=== PATIENT | female | born 1930 | race Caucasian/White ===

== ENCOUNTER 2019-08-19 02:04 | Inpatient (IN) | payer OTHER, MEDICAID ==
[~2019-08-19] VITALS: Ht 157.5 cm; Wt 81.6 kg
[~2019-08-19 02:04] MED LIST: DIGO125T79 PO; ESCI10TA PO; FLUO15CR TP; HYDR-500 PO; LOPE2CAP PO; METO-442 PO; METR500T PO; MUPI22OI TP; TRIA15CR4 TP; VALS80TA2 PO
[2019-08-19 02:05] VITALS: BP_SYST 109
--- NOTE | 2019-08-19 02:05 | NUR ---
Patient to ER bed 06 to gown for evaluation. Side rails up. Report given to RACHEL Alvarado.
--- NOTE | 2019-08-19 02:05 | NUR ---
Pt BIB EMS from [facility] r/t altered mental status. Per EMS, pt was found by staff ~ 30 minutes ENERGY TECHNICIAN sitting slumped over in a chair and drooling. Pt AAOx2, denies c/o pain or discomfort. Pt states "I fell asleep. I feel alright, just a little sleepy." Pt placed to monitor worker.
--- NOTE | 2019-08-19 02:08 | NUR ---
Dr. Dior at bedside.
--- NOTE | 2019-08-19 02:10 | NUR ---
iv # 18 gauge angiocath placed to LFA. Use of asceptic technique. Opsite placed over site. Blood return noted. Blood for lab drawn from site. Flushed with 10 cc of normal saline. No evidence of infiltration noted. Patient tolerated well.
[2019-08-19] MEDS ORDERED: NACL 0.9% 1,000 ML IV ONE (02:13)
--- NOTE | 2019-08-19 02:32 | NUR ---
Pt to CT in stable condition.
[2019-08-19 02:47] LABS: BASOPHILS % (AUTO) 0.4 % (0.0-2.0); EOSINOPHILS # (AUTO) 0.2 K/uL (0.0-0.4); EOSINOPHILS % (AUTO) 2.7 % (0.0-4.0); HEMATOCRIT 32.6 % (36-48); HEMOGLOBIN 10.7 g/dL (12.0-16.0); LYMPHOCYTES # (AUTO) 1.6 K/uL (1.0-5.5); LYMPHOCYTES % (AUTO) 24.9 % (20.5-51.5); MEAN CORPUSCULAR HEMOGLOBIN 30 pg (27-31); MEAN CORPUSCULAR HGB CONC 33 % (32-36); MEAN CORPUSCULAR VOLUME 90 fL (79.0-98.0); MONOCYTES # (AUTO) 0.6 K/uL (0.0-1.0); MONOCYTES % (AUTO) 9.5 % (1.7-9.3); NEUTROPHILS # (AUTO) 4.1 K/uL (1.8-7.7); NEUTROPHILS % (AUTO) 62.5 % (40.0-70.0); PLATELET COUNT (AUTO) 252 K/uL (130-430); RED BLOOD CELL COUNT(AUTO) 3.64 MIL/uL (4.2-6.2); RED CELL DISTRIBUTION WIDTH 17.7 % (9.0-15.0); WHITE BLOOD COUNT (AUTO) 6.6 K/uL (4.8-10.8)
[2019-08-19 02:50] LABS: ANION GAP 8 (5-15); CHLORIDE 99 mmol/L (98-107); CREATININE 1.24 mg/dL (0.55-1.30); GLUCOSE 155 mg/dL (70-99); POTASSIUM 3.4 mmol/L (3.5-5.1); SODIUM SERUM 134 mmol/L (136-145); UREA NITROGEN, BLOOD 19 mg/dL (8-21)
--- NOTE | 2019-08-19 02:51 | NUR ---
Pt returns from CT.
[2019-08-19 02:55] LABS: PROTHROMBIN TIME 10.4 SECS (9.5-12.5)
[2019-08-19 02:56] LABS: ALANINE AMINOTRANSFERASE 17 U/L (12-78); ALBUMIN 2.9 g/dL (3.4-4.8); ASPARTATE AMINOTRANSFERASE 32 U/L (10-37); TOTAL BILIRUBIN 0.3 mg/dL (0.0-1.0)
[2019-08-19 03:00] LABS: ALCOHOL, BLOOD < 3 mg/dL (<10)
--- NOTE | 2019-08-19 03:00 | NUR ---
No needs verbalized at this time. VSS.
[2019-08-19] MEDS ORDERED: PIOG30TA70 PO (03:03)
[2019-08-19] MEDS ORDERED: COR12.5 PO (03:03)
[2019-08-19] MEDS ORDERED: CAT.1 PO (03:03)
[2019-08-19] MEDS ORDERED: ALEN10TA7 PO (03:03)
[2019-08-19] MEDS ORDERED: FERR325T30 PO (03:03)
[2019-08-19] MEDS ORDERED: VITD2000 PO (03:03)
[2019-08-19] MEDS ORDERED: LACT1CAP58 PO (03:03)
[2019-08-19] MEDS ORDERED: RISP0.253 PO (03:03)
[2019-08-19] MEDS ORDERED: SAXA5TAB PO (03:03)
[2019-08-19] MEDS ORDERED: ASPI-859 PO (03:03)
[2019-08-19] MEDS ORDERED: CLOP75TA32 PO (03:03)
--- NOTE | 2019-08-19 03:15 | NUR ---
#14 Fr. In/Out urinary catheter procedure performed with return of ~5 mL yellow-estrada, foul and purulent discharge. Specimen collected and sent to lab. Addendum: 08/19/19 at 0333 by LATASHA Excoriation noted to left labia majora, foul vaginal discharge, 1 cm diameter sore to left hip.
[2019-08-19 03:36] LABS: BILIRUBIN,URINE NEGATIVE (NEGATIVE); CLARITY/URINE TURBID (CLEAR); COLOR,URINE YELLOW (YELLOW); GLUCOSE,URINE NEGATIVE (NEGATIVE); KETONES,URINE NEGATIVE (NEGATIVE); LEUKOCYTE ESTERASE ,URINE 3+ (NEGATIVE); NITRITE, URINE NEGATIVE (NEGATIVE); PH,URINE 8.5 (5.0-8.0); PROTEIN URINE 3+ (NEGATIVE); UROBILINOGEN,URINE 0.2 (0.2-1.0)
[2019-08-19 03:39] LABS: BLOOD, URINE TRACE (NEGATIVE)
[2019-08-19 03:40] LABS: BACTERIA,URINE MANY /HPF (None Seen); WBC,URINE >100 /HPF (0-3)
[2019-08-19] MEDS ORDERED: cefTRIAXone 1 GM IVPB PREMIX 50 ML IV ONE (03:45)
[2019-08-19] MEDS ORDERED: PREDEYE1% LEFT EYE (04:00)
[2019-08-19] MEDS ORDERED: CALC-823 PO (04:00)
[2019-08-19] MEDS ORDERED: SITA100T11 PO (04:00)
[2019-08-19] MEDS ORDERED: FLO44 INH (04:00)
[2019-08-19] MEDS ORDERED: GABA-533 PO (04:00)
[2019-08-19] MEDS ORDERED: TEMA30CA5 PO (04:00)
[2019-08-19] MEDS ORDERED: KETO5DRO85 LEFT EYE (04:00)
[2019-08-19] MEDS ORDERED: LISI40TA4 PO (04:00)
[2019-08-19] MEDS ORDERED: MIRT15TA7 PO (04:00)
[2019-08-19] MEDS ORDERED: SPIRIVA INH (04:00)
[2019-08-19] MEDS ORDERED: NITSL SL (04:00)
[2019-08-19] MEDS ORDERED: PROP10DR2 EACH EYE (04:00)
--- NOTE | 2019-08-19 04:01 | NUR ---
Medication reconciliation completed with information provided by [facility]. Any prior medication reconciliation on file was reviewed and corrected.
--- NOTE | 2019-08-19 04:32 | NUR ---
Specimen for MRSA collected and sent to lab.
--- NOTE | 2019-08-19 05:00 | NUR ---
Denies c/o pain or discomfort, no needs verbalized.
--- NOTE | 2019-08-19 05:22 | NUR ---
Patient will be admitted to care of Dr. Bernal. Admitted to Tele unit. Will go to room 114A. Belongings list completed. Complete and up to date summary report printed. SBAR report to be given at bedside with opportunity for questions.
--- NOTE | 2019-08-19 05:41 | NUR ---
ADMISSION NOTE Received patient from ER via gurney. Patient admitted with diagnosis of UTI and Syncope under medical supervision of Dr. Bernal. Patient is awake, alert, oriented X1. Personal belongings checked and Belongings List documented. Call light within reach. Safety precaution in place
[2019-08-19 06:15] VITALS: BP_SYST 145
--- NOTE | 2019-08-19 07:16 | NUR ---
CLOSING NOTES PATIENT AOX2. NO SIGNS OF RESPIRATORY DISTRESS NOTED. DENIES PAIN AND DISCOMFORT AT THIS TIME. BREATHING EVEN AND UNLABORED. ON ROOM AIR TOLERATING WELL. IV SITE, PATENCY NOTED. BED LOCKED AND IN LOWEST POSITION. BED ALARM ON. NEEDS MET UPON ADMISSION. GABBY CARE DONE WITH HELP OF MATERIALS PLANNER, PATIENT TOLERATED WELL. SAFETY PRECAUTION IN PLACE. ENDORSE TO RACHEL CHISHOLM FOR CONTINUITY OF CARE.
--- NOTE | 2019-08-19 07:30 | NUR ---
OPENING NOTES: RECEIVED PATIENT FROM GOVERNMENT SALES MANAGER NURSE. PATIENT IS AWAKE AND ALERT x2 LAYING DOWN IN BED. PATIENT IS TOLERATING OXYGEN ON ROOM AIR WITH NO SIGNS OF DISTRESS OR SHORTNESS OF BREATH NOTED. IV SITES ARE PATENT WITH NO SIGNS OF INFILTRATION NOTED. PATIENT DENIES ANY PAIN AT THE MOMENT. PATIENT IN STABLE CONDITION. SAFETY, FALL AND ASPIRATION PRECAUTIONS ARE IN PLACE. BED LOCKED IN LOWEST POSITION WITH CALL LIGHT IN REACH. WILL CONTINUE TO MONITOR PATIENT FOR ANY CHANGES.
[2019-08-19 08:10] VITALS: BP_SYST 137
--- NOTE | 2019-08-19 09:31 | NUR ---
Nutrition Update Karan Scale 15 noted. Pt admitted for syncope, UTI. Diet: NPO BMI: 32.9 kg/m2 RD to follow per nutrition care standards.
--- NOTE | 2019-08-19 10:35 | NUR ---
RN ROUNDS: PATIENT IS AWAKE AND ALERT x2 LAYING DOWN IN BED. PATIENT IS CONFUSED AND YELLING THAT SHE IS HUNGRY. PATIENT EDUCATED ON BEING NPO. PATIENT UNABLE TO VERBALIZE UNDERSTANDING DUE TO BEING CONFUSED. PATIENT TOLERATING OXYGEN ON ROOM AIR WITH NO SIGNS OF DISTRESS OR SHORTNESS OF BREATH NOTED. PATIENT IN STABLE CONDITION. WILL CONTINUE TO MONITOR PATIENT FOR ANY CHANGES.
--- NOTE | 2019-08-19 11:16 | NUR ---
SS NOTES: TECHNOLOGY INTEGRATION SPECIALIST attempted to meet with patient who was asleep. TECHNOLOGY INTEGRATION SPECIALIST attempted to phone daughter, busy signal.
[2019-08-19 12:00] VITALS: BP_SYST 128
[2019-08-19] MEDS ORDERED: NITROGLYCERIN 0.4 MG TAB.SUBL SL PRN (12:00)
[2019-08-19] MEDS ORDERED: risperiDONE 0.25 MG TABLET (RisperDAL) PO ONE (12:15)
[2019-08-19] MEDS ORDERED: PIOGLITAZONE HCL 15 MG TABLET PO ONE (12:30)
[2019-08-19] MEDS ORDERED: GABAPENTIN 400 MG CAPSULE PO ONE (12:30)
[2019-08-19] MEDS ORDERED: LISINOPRIL 20 MG TABLET PO ONE ×2 (12:30→12:45)
[2019-08-19] MEDS ORDERED: FERROUS SULFATE 325 MG TABLET.DR PO ONE (12:30)
[2019-08-19] MEDS ORDERED: CARVEDILOL 12.5 MG TABLET (COREG) PO ONE (12:30)
[2019-08-19] MEDS ORDERED: ASPIRIN 81 MG TABLET(ECOTRIN) PO ONE (12:30)
[2019-08-19] MEDS ORDERED: CLOPIDOGREL BISULFATE 75 MG TABLET PO ONE (12:30)
[2019-08-19] MEDS ORDERED: CHOLECALCIFEROL (VITAMIN D3) 2,000 UNIT TABLET PO ONE (12:30)
[2019-08-19] MEDS ORDERED: PIOGLITAZONE HCL 30 MG TABLET PO ONE (12:30)
--- NOTE | 2019-08-19 12:30 | NUR ---
RN ROUNDS: PATIENT IS ASLEEP LAYING DOWN IN BED. PATIENT IS TOLERATING OXYGEN ON ROOM AIR WITH NO SIGNS OF DISTRESS OR SHORTNESS OF BREATH NOTED. PATIENT IN STABLE CONDITION. WILL CONTINUE TO MONITOR PATIENT FOR ANY CHANGES.
[2019-08-19] MEDS: D5NS 1,000 ML IV SCH (13:37)
--- NOTE | 2019-08-19 16:07 | NUR ---
RN ROUNDS: PATIENT IS AWAKE AND ALERT x1 LAYING DOWN IN BED. PATIENT IS CONFUSED AND THINKS ITS 10:00PM. PATIENT REORIENTED TO TIME AND PLACE. PATIENT STATES "SHE WANTS TO GO HOME". INFORMED PATIENT THAT ONCE SHE IS CLEARED BY THE PHYSICIAN WE CAN SEND HER HOME. PATIENT AGREED. PATIENT IN STABLE CONDITION. WILL CONTINUE TO MONITOR PATIENT FOR ANY CHANGES.
[2019-08-19 17:21] VITALS: BP_SYST 136
--- NOTE | 2019-08-19 18:30 | NUR ---
CLOSING NOTES: PATIENT IS ASLEEP LAYING DOWN IN BED. PATIENT IS TOLERATING OXYGEN ON ROOM AIR WITH NO SIGNS OF DISTRESS OR SHORTNESS OF BREATH NOTED. IV SITE IS PATENT WITH NO SIGNS OF INFILTRATION NOTED AND RUNNING IV FLUIDS ORDERED. PATIENT IN STABLE CONDITION. SAFETY, FALL AND ASPIRATION PRECAUTIONS REMAINED IN PLACE THROUGHOUT THE SHIFT. BED LOCKED IN LOWEST POSITION WITH CALL LIGHT IN REACH. WILL ENDORSE PATIENT CARE TO ONCOMING ELECTRON BEAM MACHINE WELDER SETTER NURSE.
[2019-08-19 20:00] VITALS: BP_SYST 123
[2019-08-19] MEDS: cefTRIAXone 1 GM IVPB PREMIX 50 ML IV SCH (20:39)
[2019-08-19] MEDS: LISINOPRIL 20 MG TABLET PO SCH (20:40)
[2019-08-19] MEDS: CARVEDILOL 12.5 MG TABLET (COREG) PO SCH (20:40)
[2019-08-19] MEDS: MIRTAZAPINE 15 MG TABLET PO SCH (20:41)
[2019-08-19] MEDS: GABAPENTIN 400 MG CAPSULE PO SCH (20:41)
--- NOTE | 2019-08-19 23:00 | NUR ---
i have assumed the care of the pt.for the remainder of the shift.i have received the pt's report/data from casimiro. Addendum: 08/20/19 at 0313 by Blair Landers RN to review the dr's orders.
[2019-08-19] MEDS: BUDESONIDE 0.5 MG/2 ML AMPUL.NEB INH SCH (23:37)
[2019-08-19] MEDS ORDERED: HALOPERIDOL LACTATE 5 MG/ML VIAL IVP ONE (23:45)
--- NOTE | 2019-08-20 | NUR ---
pt.assessed.v/s assessed;note b/p values.no c/o pain,nausea.pt.assessed for cleanliness.pt.repositioned.iv access intact;patent iv fluids infusing. diet status;advanced:clear liquids.pt.requested water.i have assisted the pt.w the water cup.general status stable.respiratory status stable;unlabored.call light/telephone placed w/in reach of the pt.
[2019-08-20 00:47] VITALS: BP_SYST 149
--- NOTE | 2019-08-20 02:00 | NUR ---
pt.assessed.pt.presents quiescent affect;calm.pt.had requested the tv turned off;i have acquiests to the pt's requests.i inquired if the pt.requested water,pt.stated,yes.i have provided water/juice.no c/o pain,nausea.pt.assessed for cleanliness.pt.repositioned.iv access intact; patent iv fluids infusing.call light/telephone placed w/in reach of the pt.
--- NOTE | 2019-08-20 04:00 | NUR ---
pt.assessed.pt.presents quiescent affect;calm,somnolent.pt.assessed for cleanliness.pt.repositioned.iv access intact;patent. iv fluids infusing.general status stable.respiratory status stable;unlabored.call light/telephone placed w/in reach of the pt.
[2019-08-20] MEDS: D5NS 1,000 ML IV SCH ×2 (05:59→23:43)
--- NOTE | 2019-08-20 06:16 | NUR ---
pt.assessed.pt.assessed for cleanliness.pt.cleaned.pt.repositioned.i inquired if the pt.requested fluids.pt.stated:yes.i have assisted the pt.w/juice. i have changed the iv fluids bag.no c/o pain,nausea.general status stable.respiratory status stable;unlabored.call light/telephone placed w/in the reach of the pt.
--- NOTE | 2019-08-20 07:20 | NUR ---
received patient asleep. alert awake x 2. vitals signs stable. afebrile. lungs bilaterally clear but diminished at the bases. abdomen soft and non distended. has iv access on the left hand #22. saline lock. rt hand #18. with iv fluids of D5NS at 60cc/hr infusing on well. bed low position,alarmed and locked. will continue to monitor patients status. call lights within reach.
[2019-08-20 07:35] VITALS: BP_SYST 167
--- NOTE | 2019-08-20 08:00 | NUR ---
patient stable. no complained made so far.
[2019-08-20 08:12] VITALS: BP_SYST 156
[2019-08-20] MEDS: BUDESONIDE 0.5 MG/2 ML AMPUL.NEB INH SCH ×2 (08:13→20:17)
[2019-08-20] MEDS ORDERED: FLUTICASONE 44 mcg/ACTUATION MDI AER.W.ADAP INH SCH (09:00)
[2019-08-20] MEDS: PIOGLITAZONE HCL 15 MG TABLET PO SCH (09:43)
[2019-08-20] MEDS: CLOPIDOGREL BISULFATE 75 MG TABLET PO SCH (09:44)
[2019-08-20] MEDS: GABAPENTIN 400 MG CAPSULE PO SCH ×2 (09:44→20:39)
[2019-08-20] MEDS: CHOLECALCIFEROL (VITAMIN D3) 2,000 UNIT TABLET PO SCH (09:44)
[2019-08-20] MEDS: CARVEDILOL 12.5 MG TABLET (COREG) PO SCH ×2 (09:44→20:39)
[2019-08-20] MEDS: ASPIRIN 81 MG TABLET(ECOTRIN) PO SCH (09:45)
[2019-08-20] MEDS: FERROUS SULFATE 325 MG TABLET.DR PO SCH (09:45)
[2019-08-20] MEDS: LISINOPRIL 20 MG TABLET PO SCH ×2 (09:46→20:39)
--- NOTE | 2019-08-20 10:00 | NUR ---
due medication given, but had vomitted. made aware.
[2019-08-20] MEDS ORDERED: DEXTROSE 50% JECT 50 ML DISP.SYRIN IVP PRN (11:15)
--- NOTE | 2019-08-20 12:00 | NUR ---
able to eat and assisted by Carmen Alston
[2019-08-20 12:33] VITALS: BP_SYST 123
[2019-08-20 13:04] LABS: THYROID STIMULATING HORMONE 1.32 uIu/mL (0.34-4.82)
[2019-08-20] MEDS ORDERED: ONDANSETRON HCL 4 MG/2 ML VIAL IM PRN (13:15)
[2019-08-20] MEDS: risperiDONE 0.25 MG TABLET (RisperDAL) PO SCH (13:42)
--- NOTE | 2019-08-20 14:00 | NUR ---
latest bs 218 mg/dl. coverage given
[2019-08-20] MEDS: INSULIN REGULAR, HUMAN 100 UNITS/ML, 10 ML VIAL (humuLIN R) SUBCUT PRN (14:07)
--- NOTE | 2019-08-20 15:06 | NUR ---
turn to sides. made comfortable. hob elevated.
[2019-08-20] MEDS: ONDANSETRON HCL 4 MG/2 ML VIAL IVP PRN (15:42)
[2019-08-20] MEDS: cloNIDine HCL 0.1 MG TABLET PO PRN (15:42)
--- NOTE | 2019-08-20 15:57 | NUR ---
ATTENDING MD DR HORN WAS CALLED, RE: PT HAS FEVER OR ELEVATED TEMP. SPOKE TO PAULA
[2019-08-20 16:00] VITALS: BP_SYST 171
--- NOTE | 2019-08-20 17:35 | NUR ---
dr cristina called again x2 . awaiting to call back.
--- NOTE | 2019-08-20 18:07 | NUR ---
closing: patient feels much better after zofran 4 mg iv. and catapres 0.1 mg po. no nausea nor vomitting noted. still same iv fluids D5NS at 60cc/hr infusing on well. awaiting for Dr Beranl to call back. for temperature of 101.2. now is 99.3 latest. same iv access x 2 patent/dry. will continue to monitor patients status. needs pt order and scds. please follow up. bed low position, alarmed and locked. endorsed to incoming nurse.
--- NOTE | 2019-08-20 18:13 | NUR ---
latest bs 120 mg/dl. no coverage given. still eating clear liquid little by little.
--- NOTE | 2019-08-20 19:56 | NUR ---
please follow up for dr cristina for orders. endorsed to incoming nurse Temitope RAMOS
[2019-08-20 20:10] VITALS: BP_SYST 124
--- NOTE | 2019-08-20 20:10 | NUR ---
Opening notes Pt awake, alert, VSS, afebrile. No s/s distress noted. IVF infusing at ordered rate R hand, 18G clear and patent. L. hand saline lock. Call light within reach. To monitor.
[2019-08-20] MEDS: MIRTAZAPINE 15 MG TABLET PO SCH (20:39)
--- NOTE | 2019-08-20 23:47 | NUR ---
Accucheck Pt asleep easily arousable. Blood sugar checked 148. No indication for insulin per protocol. To monitor.
--- NOTE | 2019-08-21 01:10 | NUR ---
Rounds/Pericare Pt asleep, easily arousable. VSS. Pt incontinent of urine. Pericare provided w/ COMPOUND COATING MACHINE OFFBEARER assist. Pt repositioned. Call light within reach. To monitor.
[2019-08-21 01:47] VITALS: BP_SYST 122
--- NOTE | 2019-08-21 02:15 | NUR ---
Rounds Pt asleep, respirations even and unlabored. IVF infusing at ordered rate R. FA clear and patent. CAll light within reach. Bed low, locked, alarm on. To monitor.
--- NOTE | 2019-08-21 04:40 | NUR ---
Rounds/IV antibiotic Pt asleep, no s/s distress noted. Afebrile. IVF/antibiotic infusing at ordered rate R. hand 18G clear and patent. Pt repositioned. Safety maintained. Bed low, locked, siderails up, alarm on. Call light within reach. To monitor.
[2019-08-21] MEDS: cefTRIAXone 1 GM IVPB PREMIX 50 ML IV SCH (04:41)
--- NOTE | 2019-08-21 06:05 | NUR ---
Closing notes/Accucheck Pt asleep, no s/s distress noted. Blood sugar checked 123. IVF infusing at ordered rate R. hand 18G clear and patent. Call light within reach. Bed low, locked, siderails up x3, alarm on. To endorse to AM nurse. Addendum: 08/21/19 at 0649 by Temitope Melgoza RN Pt VSS, afebrile 97.9. No nausea or vomiting noted.
--- NOTE | 2019-08-21 07:20 | NUR ---
received patient alert awake x 2. lungs bilaterally clear. abdomen soft and non distended. vitals signs stable. afebrile. has iv access on both arms with drNS at 60cc/hr infusing on well. tolearting clear liquid much better. bed low position, alarmed and locked. call lights within reach. for pt evaluation today. no complained so far at this time. hob elevated.
[2019-08-21] MEDS: BUDESONIDE 0.5 MG/2 ML AMPUL.NEB INH SCH (07:31)
[2019-08-21 07:39] VITALS: BP_SYST 145
[2019-08-21] MEDS: PIOGLITAZONE HCL 15 MG TABLET PO SCH (08:12)
[2019-08-21] MEDS: ASPIRIN 81 MG TABLET(ECOTRIN) PO SCH (08:13)
[2019-08-21] MEDS: FERROUS SULFATE 325 MG TABLET.DR PO SCH (08:13)
[2019-08-21] MEDS: CHOLECALCIFEROL (VITAMIN D3) 2,000 UNIT TABLET PO SCH (08:14)
[2019-08-21] MEDS: CLOPIDOGREL BISULFATE 75 MG TABLET PO SCH (08:14)
[2019-08-21] MEDS: GABAPENTIN 400 MG CAPSULE PO SCH ×2 (08:14→21:04)
[2019-08-21] MEDS: CARVEDILOL 12.5 MG TABLET (COREG) PO SCH ×2 (08:14→21:05)
[2019-08-21] MEDS: LISINOPRIL 20 MG TABLET PO SCH ×2 (08:15→21:09)
--- NOTE | 2019-08-21 08:20 | NUR ---
due meds given. while eating breakfast. taking pills slowly.
[2019-08-21] MEDS ORDERED: ONDANSETRON HCL 4 MG/2 ML VIAL IVP PRN (08:45)
[2019-08-21] MEDS ORDERED: ACETAMINOPHEN 325 MG TABLET PO PRN (08:45)
[2019-08-21] MEDS ORDERED: METOCLOPRAMIDE HCL 10 MG/2 ML VIAL IVP PRN (08:45)
--- NOTE | 2019-08-21 09:24 | NUR ---
dr cristina informed regarding the vomittting and temperature of 101.2 yesterday and today. but said i will. made orders for ct chest without contrast. and others.
[2019-08-21] MEDS: risperiDONE 0.25 MG TABLET (RisperDAL) PO SCH (12:00)
--- NOTE | 2019-08-21 12:00 | NUR ---
not able to eat much due to nausea. not tolerating the clear liquid
[2019-08-21] MEDS: ONDANSETRON HCL 4 MG/2 ML VIAL IVP PRN (12:39)
[2019-08-21 12:41] VITALS: BP_SYST 134
--- NOTE | 2019-08-21 13:27 | NUR ---
spoke to dr cristina made orders informed regarding the vomitting about 400cc colored dark brown liquid.
[2019-08-21] MEDS ORDERED: IOHEXOL 100 ML IV ONE (14:09)
[2019-08-21] MEDS ORDERED: DIATR MEGLU/DIATRIZ SOD 30 ML SOLUTION PO ONE (14:16)
--- NOTE | 2019-08-21 15:00 | NUR ---
PATIENT CANNOT TOLERATE PO CONTRAST, SO INFORMED RADIOLOGY DEPT TO DO IV CONTRAST.
[2019-08-21] MEDS: D5NS 1,000 ML IV SCH (15:30)
--- NOTE | 2019-08-21 16:44 | NUR ---
C T SCAN OF ABDOMEN AND PELVES DONE.
[2019-08-21 17:10] VITALS: BP_SYST 172
--- NOTE | 2019-08-21 18:00 | NUR ---
bs check 128 mg.dl. no coverage given. still on npo status. went back to sleep after the procedure.
--- NOTE | 2019-08-21 19:40 | NUR ---
endorsed to incoming nurse. Temitope RAMOS
--- NOTE | 2019-08-21 19:45 | NUR ---
please follow up with dr cristina bladder scan is 200 cc of urine. had voided about x 2 in blue chucks small amount of urine. but no distention noted. no pain. noted.
[2019-08-21 20:15] VITALS: BP_SYST 161
--- NOTE | 2019-08-21 20:15 | NUR ---
Opening notes Pt AAOx2. Pt had vomitted on her gown. BP slightly elevated 161/65. Hygiene care provided with PILE HEADER assist. Pt incontinent of urine. IVF infusing at ordered rate L. FA 22G clear and patent. Call light within reach. Bed low, locked, alarm on. Will re check BP. To monitor.
[2019-08-21] MEDS: MIRTAZAPINE 15 MG TABLET PO SCH (21:04)
--- NOTE | 2019-08-21 23:30 | NUR ---
Episode of V-tach Pt alert awake, had episode of V-tach for 7 seconds. Pt had just vomitted 40ml green bile emesis. No s/s distress. Will medicate as needed. Maintain NPO. Call light within reach.
[2019-08-22] MEDS: ONDANSETRON HCL 4 MG/2 ML VIAL IVP PRN (00:12)
--- NOTE | 2019-08-22 00:12 | NUR ---
Accucheck/Zofran Pt awake, medicated with Zofran 4mg IVP as needed for vomitting 40ml greenish emesis. Blood sugar checked 174. IVF infusing at ordered rate L.FA no s/s infiltration noted. Awaiting GI consult.
[2019-08-22 00:26] VITALS: BP_SYST 156
--- NOTE | 2019-08-22 01:21 | NUR ---
Consultation Paged Reason for Consultation: abdominal pain/ nausea/vomiting Was consult called: Y Person who was notified: Alma Consulting Physician: Сергей Rodriguez Environmental Sampler Ordering Physician: Dr. Bernal
--- NOTE | 2019-08-22 02:00 | NUR ---
Emesis Pt vomitted dark brown emesis in basin. Medicated with Zofran at 0030. HOB maintained elevated. To monitor.
[2019-08-22] MEDS: cefTRIAXone 1 GM IVPB PREMIX 50 ML IV SCH (04:58)
--- NOTE | 2019-08-22 05:00 | NUR ---
Rounds/Pericare Pt awake, no distress noted. Pt incontinent of urine. Pericare provided. IVF infusing at ordered rate L. FA clear and patent. Pt repositioned. Call light within reach. To monitor.
--- NOTE | 2019-08-22 06:05 | NUR ---
Closing notes Pt awake, alert, no s/s distress noted. HOB maintained elevated. IVF infusing at ordered rate L. FA 22G no s/s infiltration. Call light within reach. Pt repositioned. Bed low, locked, siderails up, alarm on. To endorse to AM nurse.
[2019-08-22] MEDS: INSULIN REGULAR, HUMAN 100 UNITS/ML, 10 ML VIAL (humuLIN R) SUBCUT PRN (06:13)
[2019-08-22 07:02] LABS: ALANINE AMINOTRANSFERASE 20 U/L (12-78); ALBUMIN 2.4 g/dL (3.4-4.8); ANION GAP 7 (5-15); ASPARTATE AMINOTRANSFERASE 42 U/L (10-37); CALCIUM 7.3 mg/dL (8.4-11.0); CHLORIDE 99 mmol/L (98-107); CREATININE 0.87 mg/dL (0.55-1.30); GLUCOSE 161 mg/dL (70-99); SODIUM SERUM 135 mmol/L (136-145); TOTAL BILIRUBIN 0.3 mg/dL (0.0-1.0); UREA NITROGEN, BLOOD 18 mg/dL (8-21)
[2019-08-22 07:14] LABS: BASOPHILS % (AUTO) 0.1 % (0.0-2.0); HEMATOCRIT 31.4 % (36-48); HEMOGLOBIN 10.3 g/dL (12.0-16.0); LYMPHOCYTES # (AUTO) 1.5 K/uL (1.0-5.5); LYMPHOCYTES % (AUTO) 13.3 % (20.5-51.5); MEAN CORPUSCULAR HEMOGLOBIN 29 pg (27-31); MEAN CORPUSCULAR HGB CONC 33 % (32-36); MEAN CORPUSCULAR VOLUME 89 fL (79.0-98.0); MONOCYTES # (AUTO) 0.9 K/uL (0.0-1.0); MONOCYTES % (AUTO) 8.1 % (1.7-9.3); NEUTROPHILS # (AUTO) 8.7 K/uL (1.8-7.7); NEUTROPHILS % (AUTO) 78.5 % (40.0-70.0); PLATELET COUNT (AUTO) 248 K/uL (130-430); RED BLOOD CELL COUNT(AUTO) 3.54 MIL/uL (4.2-6.2); RED CELL DISTRIBUTION WIDTH 17.6 % (9.0-15.0); WHITE BLOOD COUNT (AUTO) 11.2 K/uL (4.8-10.8)
--- NOTE | 2019-08-22 07:25 | NUR ---
opening note Received bedside SBAR from night RN, patient in bed eyes open, respirations even, non labored, bed in low and locked position, call light within reach, bed alarm on
[2019-08-22] MEDS: BUDESONIDE 0.5 MG/2 ML AMPUL.NEB INH SCH (08:09)
[2019-08-22 08:27] LABS: POTASSIUM 2.9 mmol/L (3.5-5.1)
[2019-08-22] MEDS: GABAPENTIN 400 MG CAPSULE PO SCH ×2 (09:00→21:00)
[2019-08-22] MEDS: CHOLECALCIFEROL (VITAMIN D3) 2,000 UNIT TABLET PO SCH (09:00)
[2019-08-22] MEDS: CLOPIDOGREL BISULFATE 75 MG TABLET PO SCH (09:00)
[2019-08-22] MEDS: LISINOPRIL 20 MG TABLET PO SCH ×2 (09:00→21:00)
[2019-08-22] MEDS: CARVEDILOL 12.5 MG TABLET (COREG) PO SCH ×2 (09:00→21:00)
[2019-08-22] MEDS: ASPIRIN 81 MG TABLET(ECOTRIN) PO SCH (09:00)
[2019-08-22] MEDS: FERROUS SULFATE 325 MG TABLET.DR PO SCH (09:00)
[2019-08-22] MEDS: PIOGLITAZONE HCL 15 MG TABLET PO SCH (09:00)
--- NOTE | 2019-08-22 09:25 | NUR ---
medications patient is NPO, informed Dr. Bernal of patients blood pressure 156/66, no further orders, do not administer morning medications
[2019-08-22 10:43] VITALS: BP_SYST 156
[2019-08-22 12:00] VITALS: BP_SYST 141
[2019-08-22] MEDS: risperiDONE 0.25 MG TABLET (RisperDAL) PO SCH (12:00)
--- NOTE | 2019-08-22 12:00 | NUR ---
nurse notes obtained patients vital signs and blood sugar, patient in bed, respirations even, non labored, bed in low and locked position, call light within reach, bed alarm on
[2019-08-22] MEDS: D5NS 1,000 ML IV SCH (13:17)
[2019-08-22] MEDS ORDERED: POTASSIUM CHLORIDE 40 MEQ, LIDOCAINE JECT 2% PF 100 MG 50 MG in NS 250 ML IV ONE (15:00)
--- NOTE | 2019-08-22 15:10 | NUR ---
nurse note 1510 sergio Young educated patient regarding s/s of medication
[2019-08-22 16:50] VITALS: BP_SYST 177
--- NOTE | 2019-08-22 17:34 | NUR ---
ATTENDING MD DR HORN WAS CALLED, RE: HIGH BP. SPOKE TO NEREIDA.
[2019-08-22] MEDS ORDERED: ENALAPRILAT DIHYDRATE 1.25 MG/ML VIAL IVP PRN (17:45)
--- NOTE | 2019-08-22 18:01 | NUR ---
IV RE-INSERTION: iv site leaking. Restarted on right forearm 22g . Successful after 2 attempts. Resumed current IVF and potassium infusion. Will observe for any signs of infiltration.
--- NOTE | 2019-08-22 19:25 | NUR ---
CLOSING NOTE BEDSIDE SBAR GIVEN TO NIGHT RN, PATIENT IN BED, EYES CLOSED, RESPIRATIONS EVEN, NON LABORED, BED IN LOW AND LOCKED POSITION, CALL LIGHT WITHIN REACH, BED ALARM ON, CARE ENDORSED TO NIGHT RN
[2019-08-22 19:45] VITALS: BP_SYST 152
--- NOTE | 2019-08-22 19:45 | NUR ---
Opening notes Pt awake alert, VSS, BP 152/62, afebrile. IVF and K-rider infusing at ordered rate R. FA 22G no s/s infiltration. Pt repositioned. Call light within reach. BEd low, locked, siderails up, alarm on. To monitor.
[2019-08-22] MEDS: MIRTAZAPINE 15 MG TABLET PO SCH (21:00)
--- NOTE | 2019-08-22 23:00 | NUR ---
Rounds Pt incontinent of urine. Pericare/skin care provided and linens changed. Pt repositioned. VSS. Call light withn reach. HOB slightly elevated.
[2019-08-23 00:14] VITALS: BP_SYST 138
[2019-08-23] MEDS: BUDESONIDE 0.5 MG/2 ML AMPUL.NEB INH SCH ×3 (00:24→20:07)
[2019-08-23] MEDS: D5NS 1,000 ML IV SCH ×2 (00:45→18:48)
--- NOTE | 2019-08-23 01:50 | NUR ---
Rounds Pt asleep, no s/s distress noted. IVF infusing at ordered rate R. FA clear and patent. Call light iwthin reach. To monitor.
[2019-08-23] MEDS: cefTRIAXone 1 GM IVPB PREMIX 50 ML IV SCH (03:39)
--- NOTE | 2019-08-23 04:45 | NUR ---
Rounds Pt awake incontinent of urine. pericare provided. repositioned. No c/o nausea or vomitting at this time. to monitor.
--- NOTE | 2019-08-23 05:26 | NUR ---
Closing notes Pt asleep, easily arousable. No s/s distress noted. BS cheked 150, no indication for insulin per protocol. IVF infusing at ordered rate R. FA 22G no s/s infiltration. Call light within reach. Bed low, locked siderails up, alarm on. To endorse to AM nurse.
--- NOTE | 2019-08-23 11:14 | NUR ---
Patient A&O x2-3. No s/s of distress and patient denies pain. Patient went down for GI exam. AM medications will be given when patient returns.
[2019-08-23] MEDS: FERROUS SULFATE 325 MG TABLET.DR PO SCH (12:14)
[2019-08-23] MEDS: CHOLECALCIFEROL (VITAMIN D3) 2,000 UNIT TABLET PO SCH (12:15)
[2019-08-23] MEDS: PIOGLITAZONE HCL 15 MG TABLET PO SCH (12:17)
[2019-08-23] MEDS: ASPIRIN 81 MG TABLET(ECOTRIN) PO SCH (12:18)
[2019-08-23] MEDS: LISINOPRIL 20 MG TABLET PO SCH ×2 (12:20→21:00)
[2019-08-23] MEDS: GABAPENTIN 400 MG CAPSULE PO SCH ×2 (12:20→21:00)
[2019-08-23] MEDS: CLOPIDOGREL BISULFATE 75 MG TABLET PO SCH (12:20)
[2019-08-23] MEDS: CARVEDILOL 12.5 MG TABLET (COREG) PO SCH ×2 (12:22→21:00)
[2019-08-23 12:30] VITALS: BP_SYST 162
[2019-08-23] MEDS: risperiDONE 0.25 MG TABLET (RisperDAL) PO SCH (13:37)
[2019-08-23 16:36] VITALS: BP_SYST 128
--- NOTE | 2019-08-23 18:51 | NUR ---
Patient A&O x2-3. No s/s of distress and patient denies pain. Patient stable. Laying in bed resting. Reporting to night nurse.
[2019-08-23 20:00] VITALS: BP_SYST 149
[2019-08-23] MEDS: MIRTAZAPINE 15 MG TABLET PO SCH (21:00)
--- NOTE | 2019-08-23 21:10 | NUR ---
ROUNDS: Patient is asleep at this time. Breathing is even and unlabored. Bed alarm on, bed locked in lowest position, call light with patient. Will continue to monitor.
--- NOTE | 2019-08-23 23:15 | NUR ---
ROUNDS/EDUCATION: Patient is awake at this time. Breathing is even and unlabored. She was asking for water, but was educated that she is currently NPO. She seemed a little frustrated, but verbalized understanding. No c/o of pain or nausea. Bed alarm on, bed locked in lowest position, call light with patient. Will continue to monitor.
--- NOTE | 2019-08-23 23:58 | NUR ---
OPENING NOTE: Patient is asleep at this time. No s/s of acute distress noted. Breathing is even and unlabored. IVF are infusing well. IV site is without s/s of infiltration or infection. Patient has a basin at bedside for emesis if needed. Bed alarm is on. Bed locked in lowest position, call light with patient. Will continue to monitor. Addendum: 08/24/19 at 0316 by Jordyn Tate RN Note was at change of shift. 1914.
[2019-08-24] MEDS: INSULIN REGULAR, HUMAN 100 UNITS/ML, 10 ML VIAL (humuLIN R) SUBCUT PRN ×3 (00:13→12:15)
[2019-08-24 00:30] VITALS: BP_SYST 145
--- NOTE | 2019-08-24 01:15 | NUR ---
ROUNDS: Patient is asleep at this time. Breathing is even and unlabored. Bed alarm on, bed locked in lowest position, call light with patient.
--- NOTE | 2019-08-24 03:17 | NUR ---
ROUNDS: Patient is asleep at this time. Breathing is even and unlabored. Bed alarm on, bed locked in lowest position, call light with patient.
[2019-08-24] MEDS: cefTRIAXone 1 GM IVPB PREMIX 50 ML IV SCH (03:59)
--- NOTE | 2019-08-24 05:20 | NUR ---
ROUNDS: Patient is awake and watching tv at this time. Breathing is even and unlabored. Nothing needed at this time. Bed alarm is on, bed locked in lowest position, call light with patient. Will continue to monitor.
--- NOTE | 2019-08-24 06:45 | NUR ---
CLOSING NOTE: Patient is awake at this time, AOx1/2. It appeared as she was having trouble breathing, assessment done, lung sounds clear, 02 saturation 94% on RA with hx of COPD, HOB raised, and patient verbalized feeling fine at this time. Will continue to monitor and evaluate. IVF are running well. IV site is patent without s/s of infiltration or infection. All fall/safety precautions maintained throughout the shift. All needs met throughout the shift. Will continue to monitor until care is endorsed to dayshift nurse.
--- NOTE | 2019-08-24 07:25 | NUR ---
INITIAL NOTE PT AWAKE, TRYING TO REMOVE LEADS. REORIENTED PT AND EDUCATED PT ON PURPOSE OF TELEMETRY BOX. PT VERBALIZED UNDERSTANDING. IVF INFUSING WELL. CALL LIGHT WITHIN REACH, BED IN LOW AND LOCKED POSITION WITH BED ALARM ON. PT REMAINS NPO.
[2019-08-24] MEDS: BUDESONIDE 0.5 MG/2 ML AMPUL.NEB INH SCH ×2 (07:30→19:49)
[2019-08-24] MEDS: hydrALAZINE HCL 20 MG/ML VIAL IVP PRN ×2 (07:40→16:02)
--- NOTE | 2019-08-24 07:43 | NUR ---
ELEVATED BP PT COMPLAINING OF HEADACHE PAIN. BP 176/65 HR 76, PT DENIES ANY NAUSEA OR VOMITING. PRN APRESOLINE INDICATED FOR ELEVATED BP. APRESOLINE ADMINISTERED, WILL CONTINUE TO MONITOR. PT REMAINS NPO.
[2019-08-24 08:00] VITALS: BP_SYST 176
--- NOTE | 2019-08-24 08:11 | NUR ---
DR. ADEEL MCQUEEN AT BEDSIDE EXAMINING PT. INFORMED MD THAT PT HAS NOT HAD ANY EPISODES OF VOMITING OR NAUSEA LAST NIGHT PER HOTEL SERVICE SUPERVISOR. MD TO START PT ON FULL LIQUID DIET. PO MEDICATIONS OK TO GIVE TO PT. VERIFIED WITH READ BACK.
[2019-08-24] MEDS: LISINOPRIL 20 MG TABLET PO SCH ×2 (09:10→20:53)
[2019-08-24] MEDS: CLOPIDOGREL BISULFATE 75 MG TABLET PO SCH (09:10)
[2019-08-24] MEDS: CHOLECALCIFEROL (VITAMIN D3) 2,000 UNIT TABLET PO SCH (09:10)
[2019-08-24] MEDS: FERROUS SULFATE 325 MG TABLET.DR PO SCH (09:11)
[2019-08-24] MEDS: PIOGLITAZONE HCL 15 MG TABLET PO SCH (09:11)
[2019-08-24] MEDS: D5NS 1,000 ML IV SCH (09:12)
[2019-08-24] MEDS: GABAPENTIN 400 MG CAPSULE PO SCH ×2 (09:12→20:52)
[2019-08-24] MEDS: CARVEDILOL 12.5 MG TABLET (COREG) PO SCH ×2 (09:12→20:52)
[2019-08-24] MEDS: ASPIRIN 81 MG TABLET(ECOTRIN) PO SCH (09:12)
--- NOTE | 2019-08-24 09:17 | NUR ---
REASSESSED BP 156/81 HR 77. MORNING PO MEDICATIONS ADMINISTERED. PT DENIES ANY NAUSEA OR PAIN AT THIS TIME. WILL CONTINUE TO MONITOR.
--- NOTE | 2019-08-24 10:44 | NUR ---
Discharge Planning: DCP faxed [facility] (f [phone] p [phone]) pt referral. DCP to follow up. Addendum: 08/24/19 at 1406 by Lyric Reyes DP Per [facility] (f [phone] p [phone]) patient accepted to [facility]. DCP made nurse aware and that a DC order is needed to receive room. Addendum: 08/24/19 at 1450 by Lyric Reyes DP DCP arrange transportation Will Call with [facility] ([phone]) patient packet taken to nurse station, nurse made Addendum: 08/24/19 at 1607 by Lyric Reyes DP FLOR received message from Traci [facility] (f [phone] p [phone]) patient to go to [facility], transport after 7pm # to report [phone]. JUVENAL called nurse station to make nurse aware spoke ti unit reactor operator, transportiaon on will call.
--- NOTE | 2019-08-24 11:45 | NUR ---
BSG 168 INSULIN COVERAGE ADMINISTERED. FED PT FROM LUNCH TRAY. PT DRANK ALL ENSURE AND WAS ABLE TO TOLERATED SPOONFULS OF SOUP AND ICE CREAM. PT DENIES ANY NAUSEA AT THIS TIME, WILL CONTINUE TO MONITOR.
[2019-08-24 12:06] VITALS: BP_SYST 155
[2019-08-24] MEDS: risperiDONE 0.25 MG TABLET (RisperDAL) PO SCH (12:14)
[2019-08-24 12:34] LABS: BASOPHILS % (AUTO) 0.3 % (0.0-2.0); EOSINOPHILS % (AUTO) 0.5 % (0.0-4.0); HEMATOCRIT 29.5 % (36-48); HEMOGLOBIN 9.9 g/dL (12.0-16.0); LYMPHOCYTES # (AUTO) 1.7 K/uL (1.0-5.5); LYMPHOCYTES % (AUTO) 16.9 % (20.5-51.5); MEAN CORPUSCULAR HEMOGLOBIN 30 pg (27-31); MEAN CORPUSCULAR HGB CONC 33 % (32-36); MEAN CORPUSCULAR VOLUME 90 fL (79.0-98.0); MONOCYTES % (AUTO) 9.7 % (1.7-9.3); NEUTROPHILS # (AUTO) 7.4 K/uL (1.8-7.7); NEUTROPHILS % (AUTO) 72.6 % (40.0-70.0); PLATELET COUNT (AUTO) 254 K/uL (130-430); RED BLOOD CELL COUNT(AUTO) 3.27 MIL/uL (4.2-6.2); WHITE BLOOD COUNT (AUTO) 10.2 K/uL (4.8-10.8)
[2019-08-24 13:06] LABS: ANION GAP 8 (5-15); CALCIUM 7.9 mg/dL (8.4-11.0); CHLORIDE 100 mmol/L (98-107); CREATININE 0.79 mg/dL (0.55-1.30); GLUCOSE 179 mg/dL (70-99); SODIUM SERUM 135 mmol/L (136-145); UREA NITROGEN, BLOOD 18 mg/dL (8-21)
--- NOTE | 2019-08-24 13:09 | NUR ---
Dietitian Recommendations *Recommend: Full liquid CCHO diet w/ Glucerna shake TID. ONS will provide additional 660 kcal and 30gm protein daily. *Recommend: advance diet when medically appropriate. (CCHO Low Fat Low Fiber Diet. No acidic, spicy, caffeine, mint) Please see Nutritional Assessment for details. RAAD, RD
[2019-08-24 13:11] LABS: ALANINE AMINOTRANSFERASE 25 U/L (12-78); ALBUMIN 2.5 g/dL (3.4-4.8); ASPARTATE AMINOTRANSFERASE 26 U/L (10-37); TOTAL BILIRUBIN 0.4 mg/dL (0.0-1.0)
[2019-08-24 13:16] LABS: POTASSIUM 2.8 mmol/L (3.5-5.1)
--- NOTE | 2019-08-24 13:25 | NUR ---
PAGED DR. HORN AWAITING RETURN CALL TO INFORM MD OF CRITICAL LAB AND RECEIVE ORDERS.
--- NOTE | 2019-08-24 13:35 | NUR ---
CRITICAL LAB/DR. HORN SPOKE WITH MD VIA PHONE, INFORMED MD OF CRITICAL LAB K 2.8. NEW ORDERS FOR 40 MEQ KDURR NOW AND REPEAT IN FOUR HOURS. VERIFIED WITH READ BACK.
[2019-08-24] MEDS ORDERED: POTASSIUM CHLORIDE 20 MEQ TAB.PRT.SR PO ONE ×2 (13:45→17:45)
--- NOTE | 2019-08-24 15:13 | NUR ---
Dc Planning:Verified dc order with dr. Bernal for dc plan to LT[facility] vs snf. The md instructed to dc pt to LTAC and cancel snf order. CM notified the POC to pt's dtr/Yany # [phone], she agreed with the transfer to [facility]. The pt is to transfer when bed available.
[2019-08-24 15:46] VITALS: BP_SYST 165
--- NOTE | 2019-08-24 16:02 | NUR ---
[facility] CALLED CALLED [facility] AT FOR A 1900 COMPOSING ROOM SUPERVISOR TIME.
--- NOTE | 2019-08-24 16:06 | NUR ---
ELEVATED BP 161/92 HR 99. PT COMPLAINING OF HEADACHE. PT DENIES DIZZINESS. PRN APRESOLINE ADMINISTERED. WILL CONTINUE TO MONITOR.
[2019-08-24 16:12] VITALS: BP_SYST 161
--- NOTE | 2019-08-24 16:43 | NUR ---
ALEXANDRA GANT GAVE REPORT TO ROGERIO. PT TO BE PICKED UP AT 7PM BY [facility] AND TAKEN TO ALEXANDRA TO ROOM [facility]. DAUGHTER DINH VERIFIED. PT AND DAUGHTER AGREEABLE WITH TRANSFER.
[2019-08-24] MEDS: cloNIDine HCL 0.1 MG TABLET PO PRN (18:43)
--- NOTE | 2019-08-24 18:43 | NUR ---
DR. CHERRY/ELEVATED BP SPOKE WITH MD VIA PHONE, INFORMED MD OF BP 165/95 HR 88, PT HAS PRN CATAPRES WITH PARAMETERS SBP>160 AND DBP>100. PER MD, OK TO GIVE CATAPRES NOW. VERIFIED WITH READ BACK.
--- NOTE | 2019-08-24 19:10 | NUR ---
DR. CHERRY SPOKE WITH MD VIA PHONE, INFORMED MD THAT CATAPRES WAS GIVEN, BP IS STILL ELEVATED, IT IS NOW AT 180/70 HR 88. NEW ORDERS RECEIVED FOR APRESOLINE 1X DOSE 10MG IVP. VERIFIED WITH READ BACK.
[2019-08-24] MEDS ORDERED: hydrALAZINE HCL 20 MG/ML VIAL IVP ONE (19:30)
--- NOTE | 2019-08-24 19:51 | NUR ---
CLOSING NOTE AMBULANCE UNABLE TO TAKE PT DUE TO ELEVATED BP. IV SITE INFILTRATED. NEW IV STARTED PER HAT RENOVATOR AND APRESOLINE WAS ADMINISTERED. ALL NEEDS MET THROUGH OUT SHIFT. CALL LIGHT WITHIN REACH, BED IN LOW AND LOCKED POSITION WITH BED ALARM ON. PT CARE ENDORSED TO HAT RENOVATOR RN.
[2019-08-24 20:00] VITALS: BP_SYST 133
--- NOTE | 2019-08-24 20:00 | NUR ---
OPENING NOTE RECEIVED REPORT FROM MARYSE RN, PATIENT RESTING IN BED, AWAKE, A/OX2, REORIENTED PATIENT TO PERSON PLACE, TIME AND EVENT, EVEN AND UNLABORED BREATHING ON ROOM AIR, IV TO RIGHT AC SALINE LOCKED, PATENT/BENIGN. SAFETY AND FALL PRECAUTIONS IN PLACE, BED LOCKED AND IN LOWEST POSITION, BED ALARM ON, THREE SIDE RAILS UP, CALL LIGHT WITH PATIENT,WILL CONTINUE TO MONITOR.
--- NOTE | 2019-08-24 20:51 | NUR ---
REASSESSED BP 133/57 HR 83. 2100 SCHEDULED PO MEDICATIONS ADMINISTERED. PATIENT DENIES ANY NAUSEA OR PAIN AT THIS TIME. CALL LIGHT WITH PATIENT, WILL CONTINUE TO MONITOR.
[2019-08-24] MEDS: MIRTAZAPINE 15 MG TABLET PO SCH (20:53)
--- NOTE | 2019-08-24 21:01 | NUR ---
[facility] ETA WAS GOING TO BE 2330 CALLED [facility] GOING TO BE AT [phone]
--- NOTE | 2019-08-24 22:30 | NUR ---
PT TRANSFERRED Transfer packet with Transfer Orders and Medication Reconciliation form given to EMT with report. Exitcare provided. [facility] ID band removed, replaced with ID band with pt's name and . IV catheter removed, intact and dressing applied, no active bleeding. All belongings sent with patient. Patient left floor via gurney escorted by EMT in no distress.
== END 2019-08-24 22:30 | DRG 70 ==
LOC: SED 02:04 → STU 05:15
PROVIDERS: ADMIT Internal Medicine Hospice and Palliative Medicine; ATTEND Internal Medicine Hospice and Palliative Medicine
DX: G93.41 Metabolic encephalopathy (principal); E43 Unspecified severe protein-calorie malnutrition; N39.0 Urinary tract infection, site not specified; I10 Essential (primary) hypertension; E11.43 Type 2 diabetes mellitus with diabetic autonomic (poly)neuropathy; K31.84 Gastroparesis; F03.90 Unspecified dementia, unspecified severity, without behavioral disturbance, psychotic disturbance, mood disturbance, and anxiety; Z79.899 Other long term (current) drug therapy; Z79.02 Long term (current) use of antithrombotics/antiplatelets; Z79.4 Long term (current) use of insulin; Z79.82 Long term (current) use of aspirin
CPT/HCPCS: 36415; 70450-TC; 71045; 71250-TC; 74246; 78264-TC; 80053; 80061; 81000-TC; 82962; 83036; 83605; 83615-TC; 84443-TC; 84484; 85025; 85610-TC; 87040-TC; 87081; 87086; 87186-TC; 93005; 94640; 94760; 96361; 96374; 97110-GP; 97530-GP; 99285; A9541; G0378; G0482; J0360; J0696; J1815; J2405; J3480; J7042; J7050; J7626; Q9964; Q9967